=== PATIENT | female | born 1955 | race Caucasian/White ===

== ENCOUNTER 2019-05-27 09:06 | Day surgery (SDC) | payer BC, OTHER ==
[~2019-05-27] VITALS: Ht 157.5 cm; Wt 77.1 kg
[~2019-05-27 09:06] MED LIST: NO MEDICATIONS
[2019-05-27 09:27] VITALS: BP 116/57
[2019-05-27] MEDS ORDERED: LIDOCAINE-MPF 1%, 2ML INFIL ONE (09:30)
[2019-05-27] MEDS ORDERED: BUPIVACAINE/PF 0.25% ONE (09:31)
[2019-05-27] MEDS ORDERED: EPINEPHRINE 1 MG/ML, 1ML ONE (09:32)
[2019-05-27] MEDS ORDERED: HEPARIN 1,000 UNITS/ML, 10ML ONE (09:32)
[2019-05-27] MEDS ORDERED: INDOCYANINE GREEN 25 MG VIAL ONE (09:32)
[2019-05-27] MEDS: LACTATED RINGERS 1,000 ML IV SCH ×2 (09:38→18:14)
[2019-05-27] MEDS ORDERED: MIDAZOLAM 1 MG/ML, 2ML ONE (10:23)
[2019-05-27] MEDS ORDERED: FENTANYL PF 250 MCG/5ML ONE (10:23)
[2019-05-27] MEDS ORDERED: APREPITANT 40 MG CAPSULE ONE ×2 (10:28→10:32)
[2019-05-27] MEDS ORDERED: SUGAMMADEX 200 MG/2 ML IVPush ONE (10:32)
[2019-05-27] MEDS ORDERED: PHENYLEPHRINE 10 MG/ML ONE (10:32)
[2019-05-27] MEDS ORDERED: MEPERIDINE/PF 100 MG/ML ONE (11:25)
[2019-05-27] MEDS ORDERED: LABETALOL 5MG/ML, 20ML IV PRN (11:30)
[2019-05-27] MEDS ORDERED: HALOPERIDOL 5 MG/ML IV PRN (11:30)
[2019-05-27] MEDS ORDERED: MEPERIDINE/PF 25MG/ML,1ML IVPush PRN (11:30)
[2019-05-27] MEDS ORDERED: OXYcodone 5 MG/5 ML ORAL.SOL UDC PO PRN ×2 (11:30→13:30)
[2019-05-27] MEDS ORDERED: PROMETHAZINE 25 MG/ML, 1ML IV PRN (11:30)
[2019-05-27] MEDS ORDERED: FENTANYL PF 100 MCG/2ML IV PRN (11:30)
[2019-05-27] MEDS ORDERED: hydrALAzine 20 MG/ML, 1ML IV PRN (11:30)
[2019-05-27] MEDS ORDERED: ALBUTEROL/IPRATROPIUM 2.5MG/0.5MG, 3 ML NPPB PRN (11:30)
[2019-05-27] MEDS ORDERED: ACETAMINOPHEN 325 MG TABLET PO PRN (11:30)
[2019-05-27] MEDS ORDERED: HYDROmorphone 2 MG/ML, 1ML IVPush PRN (11:30)
[2019-05-27] MEDS ORDERED: DEXAMETHASONE 4 MG/ML, 1ML ONE (12:14)
[2019-05-27] MEDS ORDERED: CEFOTETAN PMX 2GM/50ML 50 ML ONE (12:14)
[2019-05-27] MEDS ORDERED: LIDOCAINE-MPF 2% ,5ML ONE (12:14)
[2019-05-27] MEDS ORDERED: ONDANSETRON 2MG/ML, 2ML ONE (12:14)
[2019-05-27] MEDS ORDERED: PROPOFOL 10 MG/ML, 20ML ONE (12:14)
[2019-05-27] MEDS ORDERED: ROCURONIUM 10MG/ML,5ML ONE (12:14)
[2019-05-27] MEDS ORDERED: OXYcodone 5 MG/5 ML ORAL.SOL UDC ONE (13:17)
[2019-05-27] MEDS ORDERED: HYDROmorphone 1 MG/ML, 1ML VIAL ONE (13:44)
[2019-05-27] MEDS ORDERED: PROMETHAZINE 25 MG SUPP PR ONE (17:30)
[2019-05-27] MEDS ORDERED: PROMETHAZINE 25 MG/ML, 1ML IM ONE (18:30)
== END 2019-05-27 20:50 | disposition home or self-care (01) ==
LOC: EDSEX → OUT 09:06 → 4NE 18:20 → OUT 20:50
PROVIDERS: ATTEND Specialist
DX: N95.0 Postmenopausal bleeding (principal); C54.1 Malignant neoplasm of endometrium; D26.9 Other benign neoplasm of uterus, unspecified; N94.89 Other specified conditions associated with female genital organs and menstrual cycle; N83.8 Other noninflammatory disorders of ovary, fallopian tube and broad ligament; F17.200 Nicotine dependence, unspecified, uncomplicated
CPT/HCPCS: 36415; 38571; 58552; 86850; 86880; 86900; 88112; 88305; 88309; 88331; 88333; J0171; J1100; J1170; J1644; J2175; J2250; J2370; J2405; J2550; J2704; J3010; J3490; J7120; J8501; S2900; 86923; G0378